=== PATIENT | female | born 1950 | race Caucasian/White ===

== ENCOUNTER 2024-09-09 11:11 | Emergency (ER) | payer MEDICARE, OTHER ==
[~2024-09-09] VITALS: Ht 157.5 cm; Wt 43.1 kg
[2024-09-09 11:19] VITALS: BP 111/75; RESP 18; TEMP 97.8; O2SAT 97
[2024-09-09 11:38] VITALS: PULSE 63
--- NOTE | 2024-09-09 11:38 | ED.PDOC ---
HPI (NEURO) HPI Comments 74 y/o F, BIBA, with PMHx of CVA, A-Fib, and anxiety presents to the ED for CC of s/p syncopal episode. EMS reports, patient is coming from home where she had x2 syncopal episodes witnessed by family. Per patient's family, patient began to complain of weakness onset, today (09/09/24) and had a full syncopal episode shortly after. Patient's family comments, first episode to have lasted less than one minute and second episode lasting greater than a minute with positive LOC. EMS relays, upon arrival to scene patient was found to be bradycardic and hypotensive with a systolic pressure in the 70's. Patient was given, IVF in route to the ED; upon arrival to the ED systolic blood pressure read in the 90's. Patient denies dizziness, headache, head injury, numbness, nausea, or vomiting. No other symptoms or modifying factors present at this time. 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, Medications, Allergies Information Source: Patient, Relative (Child), Spouse Mode of Arrival: EMS Severity: Moderate Headache Severity: None Timing: Minutes Duration: Since onset Prehospital treatment: None Seizure Quality: Mulitple Episodes Onset: At rest Circumstances: Spontaneous Symptoms: Syncope Before: Normal During: LOC After: Normal Mentation History of: CVA Modifying factors: Nothing Associated Signs and Symptoms: None Past Medical History PAST MEDICAL HISTORY: AFIB, Anxiety, CVA Surgical History: Pacemaker DEPARTURE CLERK History: Denies all DEPARTURE CLERK Hx Family History Family History: Unknown Social History Smoker: Cigarettes Alcohol: Occasionally Drugs: Marijuana Lives In: Home Constitutional: denies: chills, diaphoresis, fatigue, fever, malaise, sweats, weakness, others EENTM: denies: blurred vision, double vision, ear bleeding, ear discharge, ear drainage, ear pain, ear ringing, eye pain, eye redness, hearing loss, mouth pain, mouth swelling, nasal discharge, nose bleeding, nose congestion, nose p ain, photophobia, tearing, throat pain, throat swelling, voice changes, others Respiratory: denies: cough, hemoptysis, orthopnea, SOB at rest, shortness of breath, SOB with excertion, stridor, wheezing, others Cardiovascular: denies: chest pain, dizzy spells, diaphoresis, Dyspnea on exertion, edema, irregular heart beat, left arm pain, lightheadedness, palpitations, PND, syncope, others Gastrointestinal: denies: abdomen distended, abdominal pain, blood streaked bowels, constipated, diarrhea, dysphagia, difficulty swallowing, hematemesis, melena, nausea, poor appetite, poor fluid intake, rectal bleeding, rectal pain, vomiting, others Genitourinary: denies: abnormal vagina bleeding, burning, dyspareunia, dysuria, flank pain, frequency, hematuria, incontinence, pain, , vagina discharge, urgency, others Neurological: reports: fainting; denies: dizziness, headache, left sided n umbness, left sided weakness, numbness, paresthesia, pre-existing deficit, right sided numbness, right sided weakness, seizure, speech problems, tingling, tremors, weakness, others Musculoskeletal: denies: back pain, gout, joint pain, joint swelling, muscle pain, muscle stiffness, neck pain, others Integumetry: denies: bruises, change in color, change in hair/nails, dryness, laceration, lesions, lumps, rash, wounds, others Allergic/Immunocompromised: denies: Difficulty Healing, Frequent Infections, Hives, Itching, others Hematologic/Lymphatic: denies: anemia, blood clots, easy bleeding, easy bruising, swollen glands, others Endocrine: denies: excessive hunger, excessive sweating, excessive thirst, excessive urination, flushing, intolerance to cold, intolerance to heat, unexpl ained weight gain, unexplained weight loss, others Psychiatric: denies: anxiety, bipolar disorder, depression, hopeless, panic disorder, schizophrenia, sleepless, suicidal, others All Other Systems: Reviewed and Negative Physical Exam General Appearance: Moderate Distress HEENT: Pale Conjuntivae (L), Pale Conjuntivae (R), Pharynx Normal, TMs Normal Neck: Full Range of Motion, Non-Tender, Normal, Normal Inspection Respiratory: Chest Non-Tender, Lungs Clear, No Accessory Muscle Use, No Respira tory Distress, Normal Breath Sounds Cardiovascular: No Edema, No JVD, No Murmur, No Gallop, Normal Peripheral Pulses, Regular Rate/Rhythm Breast Exam: Deferred Gastrointestinal: No Organomegaly, Non Tender, No Pulsatile Mass, Normal Bowel Sounds, Soft Genitalia: Deferred Pelvic: Deferred Rectal: Deferred Extremities: No calf tenderness, Normal capillary refill, No pedal edema Musculoskeletal : Apperance: Normal 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 Was a procedure done?: No Differential Diagnosis (SZ) Seizure: N/A General Weakness: Dehydration, Electrolyte imbalance, Hypoglycemia, Hypotension X-Ray, Labs, Meds, VS Vital Signs Date Time Temp Pulse Resp B/P (MAP) Pulse Ox O2 Delivery O2 Flow Rate FiO2 09/09/24 11:38 63 09/09/24 11:29 63 09/09/24 11:19 97.8 60 18 111/75 (87) 97 97.8 Lab Test 09/09/24 12:10 Range/Units White Blood Count 12.0 H 4.4-10.8 10^3/uL Red Blood Count 4.76 4.0-5.20 10^6/uL Hemoglobin 15.1 12.2-16.2 g/dL Hematocrit 45.5 36.0-46.0 % Mean Corpuscular Volume 95.5 80.0-100.0 fL Mean Corpuscular Hemoglobin 31.6 28.0-32.0 pg Mean Corpuscular Hemoglobin Concent 33.1 32.0-36.0 g/dL Red Cell Distribution Width 13.9 11.8-14.3 % Platelet Count 221 140-450 10^3/uL Mean Platelet Volume 10.1 6.9-10.8 fL Neutrophils (%) (Auto) 78.7 37.0-80.0 % Lymphocytes (%) (Auto) 13.0 10.0-50.0 % Monocytes (%) (Auto) 7.7 0.0-12.0 % Eosinophils (%) (Auto) 0.1 0.0-7.0 % Basophils (%) (Auto) 0.5 0.0-2.0 % Neutrophils # (Auto) 9.5 H 1.6-8.6 10 ^3/uL Lymphocytes # (Auto) 1.6 0.4-5.4 10 ^3/uL Monocytes # (Auto) 0.9 0-1.3 10 ^3/uL Eosinophils # (Auto) 0 0-0.8 10 ^3/uL Basophils # (Auto) 0.1 0-0.2 10 ^3/uL Nucleated Red Blood Cells 0.1 % Sodium Level 139 136-145 mmol/L Potassium Level 4.4 3.5-5.1 mmol/L Chloride Level 103 98-107 mmol/L Carbon Dioxide Level 27 20-31 mmol/L Anion Gap 9 5-15 Blood Urea Nitrogen 34 H 9-23 mg/dL Creatinine 1.12 H 0.550-1.02 mg/dL Glomerular Filtration Rate Calc 51 >90 mL/min BUN/Creatinine Ratio 30.4 H 10.0-20.0 Serum Glucose 129 H 74-106 mg/dL Calcium Level 10.3 8.7-10.4 mg/dL Troponin I High Sensitivity 10 </=34 ng/L Plasma/Serum Blood Alcohol 4.1 <10 mg/dL CXR: IMPRESSION: No acute cardiopulmonary disease. HEAD CT WITHOUT CONTRAST: IMPRESSION: 1. No intracranial hemorrhage or mass effect. 2. Moderate chronic microvascular ischemic changes. 3. Extensive bilateral encephalomalacia, likely sequela of previous MCA distribution infarcts. Recommend MRI brain to evaluate for superimposed acute infarction. The patient's CBC came back with an elevated white blood cell count of 12.0 The rest of the CBC is within normal limits The BUN is 34 and the creatinine is 1.12 and the rest of the chemistry panel are within normal limits The troponin level is negative At this time, we are waiting for the patient's urine. After waiting here in the emergency department's, the patient and family have now decided that they are going to sign out against medical advice. We did speak with them and ask them to stay but it seems like they have decided to sign out Images Reviewed?: Images reviewed and evaluated by me Time of 1ST Reevaluation: 11:50 Reevaluation 1ST: Unchanged Patient Education/Counseling: Diagnosis, Treatment, Prognosis Family Education/Counseling: Diagnosis, Treatment, Prognosis Departure 1 Departure Time of Disposition: 16:05 Impression: Primary Impression: Episode of syncope Qualified Codes: R55 - Syncope and collapse Additional Impression: Autonomic dysfunction Disposition: 07 LEFT AGAINST MEDICAL ADVICE Condition: Fair Critical Care Note Critical Care Time?: Yes (45 min-critical care time only) Stability Stability form required: Yes Unstable for transfer: Telemetry monitoring (Telemetry monitoring required), ED Physician Assesment (Clinical assesment) Heart Score Heart Score: Heart Score Response (Comments) Value History N/A 0 EKG N/A 0 Age N/A 0 Risk Factors N/A 0 Troponin N/A 0 Total 0 I personally scribed for KAREN CAN MD ([email or web address]) on 09/09/24 at 11:38. Electronically submitted by Anali Rice ([facility]). I personally scribed for KAREN CAN MD ([email or web address]) on 09/09/24 at 13:08. Electronically submitted by Anali Rice ([facility]). I personally scribed for KAREN CNA MD ([email or web address]) on 09/09/24 at 13:09. Electronically submitted by Anali iRce ([facility]). KAREN CAN MD September 09, 2024 11:38
[2024-09-09] MEDS ORDERED: SODIUM CHLORIDE 0.9% 500 ML IVB ONE (12:15)
[2024-09-09 12:30] LABS: Basophils # (auto) 0.1 10 ^3/uL (0-0.2); Basophils % (auto) 0.5 % (0.0-2.0); Eosinophils # (auto) 0 10 ^3/uL (0-0.8); Eosinophils % (auto) 0.1 % (0.0-7.0); Hematocrit 45.5 % (36.0-46.0); Hemoglobin 15.1 g/dL (12.2-16.2); Lymphocytes # (auto) 1.6 10 ^3/uL (0.4-5.4); Mean Corpuscular Hemoglobin 31.6 pg (28.0-32.0); Mean Corpuscular Hgb Conc. 33.1 g/dL (32.0-36.0); Mean Corpuscular Volume 95.5 fL (80.0-100.0); Monocytes # (auto) 0.9 10 ^3/uL (0-1.3); Monocytes % (auto) 7.7 % (0.0-12.0); Neutrophils # (auto) 9.5 10 ^3/uL (1.6-8.6); Neutrophils % (auto) 78.7 % (37.0-80.0); Nucleated Red Blood Cells % 0.1 %; Platelet Count (auto) 221 10^3/uL (140-450); Red Blood Cells 4.76 10^6/uL (4.0-5.20); Red Cell Distribution Width 13.9 % (11.8-14.3)
[2024-09-09 12:37] LABS: Chloride 103 mmol/L (98-107); Potassium 4.4 mmol/L (3.5-5.1); Sodium 139 mmol/L (136-145)
[2024-09-09 12:38] LABS: Anion Gap 9 (5-15); Carbon Dioxide 27 mmol/L (20-31)
[2024-09-09 12:39] LABS: Calcium 10.3 mg/dL (8.7-10.4)
[2024-09-09 12:44] LABS: BUN/Creatinine Ratio 30.4 (10.0-20.0); Blood Alcohol 4.1 mg/dL (<10)
--- NOTE | 2024-09-09 12:44 | DVH ---
EXAM: XY CHEST PORTABLE Indication: syncope Technique: Single frontal view of the chest was obtained Comparison: None FINDINGS: Lines and Tubes: Cardiac pacemaker projects over left chest wall. Lungs: No focal consolidation. Pleura: No effusion. No pneumothorax. Cardiomediastinal contours: Unremarkable. Atherosclerotic vascular calcifications of the thoracic ao rta are noted. Bones: No acute osseous abnormality. IMPRESSION: No acute cardiopulmonary disease.
[2024-09-09 12:45] LABS: Blood Urea Nitrogen 34 mg/dL (9-23); Glucose 129 mg/dL (74-106)
--- NOTE | 2024-09-09 12:51 | DVH ---
CT HEAD WITHOUT CONTRAST Indication: syncope EXAM DATE: 09/09/2024 12:18 PM COMPARISON: None TECHNIQUE: CT of the head without intravenous contrast. RADIATION DOSE: CTDIvol: 52 mGy, DLP: 915 mGy*cm FINDINGS: There is no intracranial hemorrhage. There is no extra-axial fluid, mass, mass effect or midline shif t. The ventricles are midline and normal in size. Basilar cisterns are patent. There are moderate per iventricular and subcortical white matter chronic microvascular ischemic changes. Multiple old infar cts involving the left frontal, parietal, temporal lobes, left flores radiata, right flores radiata, right frontal and temporal lobes. The paranasal sinuses and mastoids are well-pneumatized. Imaged portion of the orbits are unremarkabl e. IMPRESSION: 1. No intracranial hemorrhage or mass effect. 2. Moderate chronic microvascular ischemic changes. 3. Extensive bilateral encephalomalacia, likely sequela of previous MCA distribution infarcts. Recom mend MRI brain to evaluate for superimposed acute infarction.
--- NOTE | 2024-09-10 09:52 | ECG ---
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
== END 2024-09-09 16:03 | disposition left against medical advice (07) ==
LOC: EDBD 11:11 → ER 11:15
DX: G90.9 Disorder of the autonomic nervous system, unspecified (principal); F17.210 Nicotine dependence, cigarettes, uncomplicated; F12.90 Cannabis use, unspecified, uncomplicated; I48.91 Unspecified atrial fibrillation; F41.9 Anxiety disorder, unspecified; Z86.73 Personal history of transient ischemic attack (TIA), and cerebral infarction without residual deficits; Z95.0 Presence of cardiac pacemaker
CPT/HCPCS: 36415; 70450; 71045; 80048; 80320; 84484; 85025; 86850; 86900; 86901; 93005